=== PATIENT | female | born 1955 | race Caucasian/White ===

== ENCOUNTER 2020-07-31 13:53 | Emergency (ER) | payer OTHER ==
[~2020-07-31] VITALS: Ht 160 cm; Wt 68.0 kg
[2020-07-31] MEDS ORDERED: Bamlanivimab 700 MG in NS 275 ML IVPB SCH (14:15)
[2020-07-31] MEDS ORDERED: Bamlanivimab Fact Sheet MISC ONE (14:15)
--- NOTE | 2020-07-31 15:15 | Emergency Room Report ---
History of Present Illness General Chief Complaint: Flu Like Symptoms Source: Patient Present Illness HPI [id number] female presents to ED for evaluation. Covid positive. Tested positive yesterday. Referred by PMD Dr. Castellanos. Generalized body aches, cough, weakness. Denies chest pain or shortness of breath. History of lymphoma. No other aggravating relieving factors. 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 Castellanos Patient History Past Medical History: other - Non-Hodgkin's lymphoma Past Surgical History: none Pertinent Family History: none Social History: Denies: smoking, alcohol use, drug use Now: No Immunizations: UTD Reviewed Nursing Documentation: PMH: Agreed; PSxH: Agreed Nursing Documentation-PMH Past Medical History: No History, Except For Hx Cancer: Yes - non hodgkins lymphoma Review of Systems All Other Systems: negative except mentioned in HPI Physical Exam Vital Signs Date Time Temp Pulse Resp B/P (MAP) Pulse Ox O2 Delivery O2 Flow Rate FiO2 07/31/20 14:13 97.3 64 11 104/87 (93) 98 Room Air 07/31/20 14:41 100 Sp02 EP Interpretation: reviewed, normal General Appearance: no apparent distress, alert, GCS 15, non-toxic Head: normocephalic, atraumatic Eyes: bilateral eye normal inspection, bilateral eye PERRL ENT: hearing grossly normal, normal pharynx, no angioedema, normal voice Neck: full range of motion, supple/symm/no masses Respiratory: chest non-tender, lungs clear, normal breath sounds, speaking full sentences Cardiovascular #1: regular rate, rhythm, no edema Cardiovascular #2: 2+ carotid (R), 2+ carotid (L), 2+ radial (R), 2+ radial (L), 2+ dorsalis pedis (R), 2+ dorsalis pedis (L) Gastrointestinal: normal bowel sounds, non tender, soft, non-distended, no guarding, no rebound Rectal: deferred Genitourinary: normal inspection, no CVA tenderness Musculoskeletal: back normal, normal range of motion, gait/station normal, non- tender Neurologic: alert, motor strength/tone normal, oriented x3, sensory intact, responsive, speech normal Psychiatric: judgement/insight normal, memory normal, mood/affect normal, no suicidal/homicidal ideation Reflexes: 3+ bicep (R), 3+ bicep (L), 3+ tricep (R), 3+ tricep (L), 3+ knee (R), 3+ knee (L) Lymphatic: no adenopathy Medical Decision Making Diagnostic Impression: Primary Impression: COVID-19 ER Course BAMLANIVIMAB - FDA EUA. - Reviewed/ d/w pt. the BAMLANIVIMAB Infusion Drug fact sheet for patients who are considering receiving IV infusion. Pt. understands and is aware that this medication has authorization from the FDA for Emergency Use only, and is still undergoing full testing and monitoring before it can be fully authorized by the FDA. Pt. also understands that this medication is intended to reduce or prevent need for severe hospitalization and invasive interventions that are known to arise in high risk patients who are infected with the nCoV-2019. Pt. understands this is not a cure/treatment for full remission of COVID-19. Pt. educated and understands that the safety and effectiveness of the BAMLANIVIMAB Infusion is limited at this time. The pt. is educated on possible side effects as well as possibility of severe side effects/reactions that may arise. Pt. is educated and aware that any usp effects arising from this FDA- EUA COVID-19 treatment is not known at this time. After education and chance to ask any questions or receive additional clarification, this patient has decided to move forward and receive the BAMLANIV IMAB Infusion for COVID-19 under FDA emergency use authorization here in the Emergency Dept. Infusion is administered via IV over the duration of 1 hour. The patient is monitored and observed for any reactions to infusion that require acute medical intervention. The patient did not have any significant reactions during the 1 hour observation period following infusion. Pt. was given their own copy of the BAMLANIVIMAB Infusion fact sheet to take home. Last Vital Signs Date Time Temp Pulse Resp B/P (MAP) Pulse Ox O2 Delivery O2 Flow Rate FiO2 07/31/20 14:41 18 100 07/31/20 14:41 Room Air 100 07/31/20 14:13 97.3 64 104/87 (93) Status: improved Disposition: HOME, SELF-CARE Condition: Stable Referrals: NON PHYSICIAN (PCP) Jorge Li MD Jul 31, 2020 15:15
--- NOTE | 2020-07-31 15:25 | NUR ---
ED Nurse Note: pt received information sheet on bam infusion. pt verbalizes understanding. pt on monitor & stable. will continue to monitor.
[2020-07-31 16:02] VITALS: BP 119/75
[2020-07-31 16:23] VITALS: BP 110/76
--- NOTE | 2020-07-31 16:59 | NUR ---
ED Nurse Note: 1645: pt infusion complete. pt denies sob. pt on monitor. will monitor pt for 1 hr prior to discharge to watch for signs/sx of medication reaction. vitals stable at this time.
[2020-07-31 17:48] VITALS: BP 118/71
[2020-07-31 17:58] VITALS: BP 117/76
--- NOTE | 2020-07-31 17:58 | NUR ---
ER DISCHARGE NOTE: Patient is cleared to be discharged per ERMD, pt is aox4, on room air, with stable vital signs. pt was given dc and instructions, pt was able to verbalize understanding, pt id band and iv site removed without complications. pt is able to ambulate with steady gait. pt took all belongings.
== END 2020-07-31 17:59 | disposition home or self-care (01) ==
LOC: EMR 14:30
DX: U07.1 COVID-19 (principal); Z23 Encounter for immunization; Z85.72 Personal history of non-Hodgkin lymphomas; Z91.013 Allergy to seafood
CPT/HCPCS: 96365; 99284; J7050; Q0239